=== PATIENT | male | born 1970 | race Caucasian/White ===

== ENCOUNTER 2024-03-04 10:03 | Outpatient (CLI) | payer OTHER ==
[2024-03-04] MEDS ORDERED: Iopamidol 370 76% 100 ML VIAL ONE (10:54)
== END 2024-03-04 10:04 | disposition home or self-care (01) ==
LOC: BICCT 10:03
PROVIDERS: ATTEND Urology
DX: N40.1 Benign prostatic hyperplasia with lower urinary tract symptoms (principal); R31.29 Other microscopic hematuria; N28.1 Cyst of kidney, acquired
CPT/HCPCS: 74178; Q9967